=== PATIENT | female | born 1940 | race Caucasian/White ===

== ENCOUNTER 2019-04-03 18:22 | Emergency (ER) | payer OTHER, MEDICAID ==
[2019-04-03] MEDS: morphine LIQ (10 MG/5 ML) CUP PO (19:26)
[2019-04-03] MEDS: KETOROLAC 15 MG INJ IM (19:27)
[2019-04-03] MEDS: ONDANSETRON (ODT) 4 MG TAB ODT (19:27)
== END 2019-04-03 20:08 | disposition home or self-care (01) ==
LOC: FTE 20:08
DX: M54.42 Lumbago with sciatica, left side (principal)
CPT/HCPCS: 96372; 99284-25